=== PATIENT | female | born 1975 ===

== ENCOUNTER 2016-12-24 14:38 | Emergency (ER) | payer MEDICAID ==
[2016-12-24 14:48] VITALS: BP 116/79; PULSE 72; RESP 18; TEMP 97.5; O2SAT 99
--- NOTE | 2016-12-24 15:22 | C.PDOC ---
History Of Present Illness 41 yr old female presents to the ER requesting Xanax refill. Patient state she was on Xanax 2mg but now had a new PMD in [place] who is giving her Xanax 1mg but has ran out of her Rx. Patient reports the PMD tried to refill them but "can't refill because the computer won't let her". Patient reports she ran out 3 days ago. Patient currently denies suicidal or homicidal ideation, chest pain , SOB, weakness or numbness. REQUESTING XANAX REFILL. PS WAS ON XANAX 2 MG, HAS NEW PMD IN [place] WHO WAS GIVING XANAX 1 MG BUT PS FINISHED RX. STATES PMD "CAN'T REFILL IT BC COMPUTER WON'T LET HER". RAN OUT 3 DAYS AGO. DENIES SI/SA. PS TRIED CALLING OUTPT PSYCH BUT NO RESPONSE EXAM NAD PSYCH CALM COOPERATIVE MILD ANXIETY NO ACUTE PSYCHOSIS, SI/SA MDM PT ADVISED NEED FOR CARE HOME FU AND MGMT OF ANXIETY. D/W CRISIS FOR OUTPT Time Seen by Provider: 12/24/16 14:58 Chief Complaint (Nursing): Med Refill History Per: Patient History/Exam Limitations: no limitations Onset/Duration Of Symptoms: Days (ran out 3 days ago) Past Medical History Reviewed: Historical Data, Nursing Documentation, Vital Signs Vital Signs: Last Vital Signs Temp 97.5 F L 12/24/16 14:45 Pulse 72 12/24/16 14:45 Resp 18 12/24/16 15:33 BP 116/79 12/24/16 14:45 Pulse Ox 99 12/24/16 15:25 - Medical History PMH: Depression - [facility] Procedures TETANUS TOXOID ADMINIST (08/15/14) Family History: States: No Known Family Hx - Social History Hx Alcohol Use: No Hx Substance Use: No - Immunization History Hx Tetanus Toxoid Vaccination: (not up to date) Review Of Systems Except As Marked, All Systems Reviewed And Found Negative. Cardiovascular: Negative for: Chest Pain Respiratory: Negative for: Shortness of Breath Neurological: Negative for: Weakness, Numbness Psych: Negative for: Suicidal ideation Physical Exam - Physical Exam Appears: Non-toxic, No Acute Distress, Other (Mild anxiety. Cooperative. No acute psychosis. 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 Case was discussed with crisis worked for outpatient. Disposition Counseled Patient/Family Regarding: Diagnosis, Need For Followup, Rx Given - Disposition Referrals: [facility] [Provider Group] [facility] [Outside] [facility] [Outside] Disposition: HOME/ ROUTINE Disposition Time: 15:24 Condition: GOOD Prescriptions: Alprazolam [Xanax] 2 mg PO PRN PRN #4 tab PRN Reason: Anxiety Instructions: Anxiety (ED) - Clinical Impression Clinical Impression: Anxiety, Medication refill - Scribe Statement The provider has reviewed the documentation as recorded by the Jakeibneto Burkett Provider Attestation: All medical record entries made by the Jakeibneto were at my direction and personally dictated by me. I have reviewed the chart and agree that the record accurately reflects my personal performance of the history, physical exam, medical decision making, and the department course for this patient. I have also personally directed, reviewed, and agree with the discharge instructions and disposition.
== END 2016-12-24 15:33 | disposition home or self-care (01) ==
LOC: C.ER 14:38
DX: F41.9 Anxiety disorder, unspecified (principal); Z76.0 Encounter for issue of repeat prescription

== ENCOUNTER 2017-12-10 15:46 | Emergency (ER) | payer MEDICAID ==
[2017-12-10 16:02] VITALS: TEMP 98.2
[2017-12-10] MEDS ORDERED: Piperacillin/Tazobact 3.375 GM in Sodium Chloride 100 ML IVPB STA (16:11)
[2017-12-10] MEDS ORDERED: Vancomycin 1 gm/NS 200 ml 1 GM/200 ML BAG IVPB STA ×2 (16:23→17:02)
[2017-12-10 16:39] LABS: BASO % 0.5 % (0.0-2.0); EOS # 0.1 K/uL (0.0-0.7); EOS % 1.8 % (0.0-4.0); HEMOGLOBIN 13.9 g/dL (11.0-16.0); LYMPH % 25.9 % (20.0-40.0); MEAN CELL VOLUME 91.2 fL (81.0-99.0); MEAN CORPUSCULAR HEMOGLOBIN 31.9 pg (27.0-31.0); MEAN CORPUSCULAR HGB CONC 34.9 g/dL (33.0-37.0); MEAN PLATELET VOLUME 8.1 fL (7.2-11.7); MONO # 0.4 K/uL (0.0-0.8); MONO % 5.4 % (0.0-10.0); NEUT # 5.3 K/uL (1.8-7.0); NEUT % 66.4 % (50.0-75.0); NRBC % 0.1 % (0.0-2.0); RBC 4.35 Mil/uL (3.80-5.20); RED CELL DISTRIBUTION WIDTH 12.8 % (11.5-14.5); WHITE BLOOD COUNT 7.9 K/uL (4.8-10.8)
[2017-12-10 16:45] LABS: CALCIUM 9.8 mg/dl (8.6-10.4); GFR AFRICAN-AMERICAN > 60; GFR NON-AFRICAN AMERICAN > 60
[2017-12-10 16:47] LABS: ALB/GLOB RATIO 0.8 (1.0-2.1); ALBUMIN 4.7 g/dL (3.5-5.0); ALT/SGPT 26 U/L (9-52); AST/SGOT 43 U/L (14-36); BLOOD UREA NITROGEN 18 mg/dL (7-17)
--- NOTE | 2017-12-10 16:49 | RAD ---
PROCEDURE: Radiographs of the Left Forearm HISTORY: Arm puncture COMPARISON: None available. TECHNIQUE: Frontal and lateral views obtained. FINDINGS: BONES: Current study reveals no evidence of acute displaced fracture nor dislocation. Osseous structures appear intact. No evidence of cortical destruction. Mild infiltration changes seen within the medial and dorsal soft tissues of the left forearm which may represent cellulitis. Clinical correlation recommended. No evidence of radiopaque foreign body or obvious subcutaneous emphysema JOINT SPACES: Joint spaces preserved. OTHER FINDINGS: None. IMPRESSION: Suspect cellulitis within the medial and dorsal soft tissues left forearm. No acute fractures seen. No cortical destructive changes.
--- NOTE | 2017-12-10 17:33 | C.PDOC ---
History Of Present Illness 42 year old female presents to the emergency department with complaints of swelling and drainage in her left forearm. Patient reports that her forearm was punctured by a nail 3 days ago. She reports that she is right hand dominant and that her tetanus vaccination is up to date. Patient denies fever or chills. Time Seen by Provider: 12/10/17 16:06 Chief Complaint (Nursing): Abnormal Skin Integrity History Per: Patient History/Exam Limitations: no limitations Onset/Duration Of Symptoms: Days (x3) Current Symptoms Are (Timing): Still Present Location Of Injury: Left: Forearm (puncture by nail) Quality Of Symptoms: Swollen, Draining Past Medical History Vital Signs: Last Vital Signs Temp 98.2 F 12/10/17 16:02 Pulse 98 H 12/10/17 16:02 Resp 18 12/10/17 16:02 BP 100/70 12/10/17 16:02 Pulse Ox 97 12/10/17 18:16 - Medical History PMH: Depression Surgical History: No Surg Hx - [facility] Procedures TETANUS TOXOID ADMINIST (08/15/14) Family History: States: No Known Family Hx - Social History Hx Alcohol Use: No Hx Substance Use: No - Immunization History Hx Tetanus Toxoid Vaccination: (not up to date) Review Of Systems Except As Marked, All Systems Reviewed And Found Negative. Constitutional: Negative for: Fever, Chills Musculoskeletal: Positive for: Other (wound) Physical Exam - Physical Exam Appears: Non-toxic, No Acute Distress Skin: Normal Color, Warm, Dry Head: Atraumatic, Normacephalic Eye(s): bilateral: Normal Inspection Nose: Normal Oral Mucosa: Moist Neck: Normal, Supple Chest: Symmetrical Cardiovascular: Rhythm Regular Respiratory: Normal Breath Sounds Gastrointestinal/Abdominal: Normal Exam Extremity: Other (Puncture wound to the left volar aspect of the proximal forearm near the ulnar region, positive scant pustular discharge and surrounding erythema, no sloughing of skin. Neurovascularly intact.) Neurological/Psych: Oriented x3, Normal Speech, Normal Motor, Normal Sensation ED Course And Treatment - Laboratory Results Result Diagrams: 12/10/17 16:29 12/10/17 16:29 O2 Sat by Pulse Oximetry: 97 (RA) Pulse Ox Interpretation: Normal - Other Rad x-ray left forearm X-Ray: Interpreted by Me, Viewed By Me, Read By Radiologist Interpretation: BONES: Current study reveals no evidence of acute displaced fracture nor dislocation. Osseous structures appear intact. No evidence of cortical destruction. Mild infiltration changes seen within the medial and dorsal soft tissues of the left forearm which may represent cellulitis. Clinical correlation recommended. No evidence of radiopaque foreign body or obvious subcutaneous emphysema. JOINT SPACES: Joint spaces preserved. OTHER FINDINGS: None. IMPRESSION: Suspect cellulitis within the medial and dorsal soft tissues left forearm. No acute fractures seen. No cortical destructive changes. Medical Decision Making Medical Decision Making: Impression: cellulitis of the forearm. Plan: * CMP * CBC * Wound culture * x-ray X-ray shows no gas pattern. Patient given initial IV antibiotics, will attempt to treat as outpatient. Patient instructed to return within 24-48 hours for wound check. Disposition Counseled Patient/Family Regarding: Studies Performed, Diagnosis, Need For Followup, Rx Given - Disposition Referrals: [facility] [Outside] Disposition: HOME/ ROUTINE Disposition Time: 17:31 Condition: STABLE Additional Instructions: follow up with your doctor in 2 days call to make an appointment take medications as prescribed return to ER if symptoms worsens or progress wound check in 24-48 hours Prescriptions: Amoxicillin/Clavulanate [Augmentin 875 MG-125 MG] 1 tab PO BID #20 tab Sulfamethoxazole/Trimethoprim [Bactrim DS 800 mg-160 mg] 1 tab PO BID #20 tab traMADol [Ultram] 50 mg PO TID PRN #8 tab PRN Reason: Pain, Moderate (4-7) Instructions: Cellulitis (Skin Infection), Adult (DC) Forms: [facility] (Telugu), General Discharge Instructions - POA Present On Arrival: None - Clinical Impression Clinical Impression: Cellulitis - Scribe Statement The provider has reviewed the documentation as recorded by the Jillian Owusu Clifford Provider Attestation: All medical record entries made by the Jillian were at my direction and personally dictated by me. I have reviewed the chart and agree that the record accurately reflects my personal performance of the history, physical exam, medical decision making, and the department course for this patient. I have also personally directed, reviewed, and agree with the discharge instructions and disposition.
[2017-12-10 19:23] VITALS: BP 124/70; PULSE 74; RESP 20
[2017-12-11 07:23] VITALS: O2SAT 97
== END 2017-12-10 19:21 | disposition home or self-care (01) ==
LOC: C.ER 15:46
DX: L03.114 Cellulitis of left upper limb (principal)
CPT/HCPCS: 73090; 80053; 85025; 87070; 87181; 96365; 96368; 96375; 99283; J1885; J2543; J3370; J7050

== ENCOUNTER 2017-12-23 16:37 | Emergency (ER) | payer MEDICAID ==
[2017-12-23 16:46] VITALS: BP 103/69; PULSE 84; RESP 20; TEMP 98.3; O2SAT 97
--- NOTE | 2017-12-23 17:16 | C.PDOC ---
History Of Present Illness 42 yo female come back for re-evaluation of Left forearm pain, swelling developed 3 weeks ago " after puncture my arm with nail". Pt admits, was seen here in ED on 12/10/17 when xray, blood work performed with normal results, and received antibiotic. Pt reports, now developed Right neck gland swelling and pain associated with mild discomfort on swallow. Otherwise, pt denies fever, chills, drooling, trismus, recent dental work, headache, dizziness, earache, cough, abd. pain, N/V, denies new trauma or injury to left forearm, weakness, sensory or vascular deficits to left arm. Ambulate to Ed for evaluation, not in any apparent distress. Time Seen by Provider: 12/23/17 16:54 Chief Complaint (Nursing): ENT Problem History Per: Patient Past Medical History Reviewed: Historical Data, Nursing Documentation, Vital Signs Vital Signs: Last Vital Signs Temp 98.3 F 12/23/17 16:45 Pulse 84 12/23/17 16:45 Resp 20 12/23/17 16:45 BP 103/69 12/23/17 16:45 Pulse Ox 97 12/23/17 17:29 - Medical History PMH: Depression - [facility] Procedures TETANUS TOXOID ADMINIST (08/15/14) Family History: States: Unknown Family Hx - Social History Hx Alcohol Use: No Hx Substance Use: Yes - Immunization History Hx Tetanus Toxoid Vaccination: No (not up to date) Hx Influenza Vaccination: No Hx Pneumococcal Vaccination: No Review Of Systems Except As Marked, All Systems Reviewed And Found Negative. Constitutional: Negative for: Fever, Chills Eyes: Negative for: Vision Change ENT: Positive for: Throat Pain. Negative for: Ear Pain, Ear Discharge, Nose Pain, Nose Discharge, Nose Congestion, Mouth Swelling, Throat Swelling Cardiovascular: Negative for: Chest Pain, Palpitations Respiratory: Negative for: Cough Gastrointestinal: Negative for: Nausea, Vomiting, Abdominal Pain, Diarrhea Genitourinary: Negative for: Dysuria, Frequency, Incontinence Musculoskeletal: Positive for: Hand Pain Skin: Positive for: Lesions. Negative for: Rash Neurological: Negative for: Weakness, Numbness, Headache, Dizziness Physical Exam - Physical Exam Appears: Well, No Acute Distress Skin: Normal Color, Warm, No Rash Head: Normacephalic Eye(s): bilateral: PERRL Ear(s): Bilateral: Normal Nose: No Flaring, No Discharge Oral Mucosa: Moist, No Drooling, No Trismus Tongue: Normal Appearing Lips: Normal Appearing Teeth: Normal Dentition Gingiva: Normal Appearing Throat: No Erythema, No Drooling, Other (Uvul amidline, no edema.) Neck: Trachea Midline, Supple Lymphatic: Adenopathy (Right anterior cervical, local, tender, mobile, no edema or erythema.) Cardiovascular: Rhythm Regular, No Murmur, No JVD Respiratory: No Decreased Breath Sounds, No Accessory Muscle Use, No Stridor, No Wheezing Gastrointestinal/Abdominal: Soft, No Tenderness Extremity: Normal ROM (B/L UEs), No Pedal Edema, Capillary Refill (less than 2sec to Left hand), No Deformity, No Swelling, Other (Left volar/medial forearm single tender mass 1cm diameter. No edema, no erythema, no flactulance.) Neurological/Psych: Oriented x3, Normal Speech, Normal Motor, Normal Sensation, Normal Reflexes ED Course And Treatment O2 Sat by Pulse Oximetry: 97 - Other Rad Left forearm X-Ray: Read By Radiologist Interpretation: 12/10/17. 12/10/2017 16:48:15. My Comment : . PROCEDURE: Radiographs of the Left Forearm. HISTORY: Arm puncture. COMPARISON: None available. TECHNIQUE: Frontal and lateral views obtained. FINDINGS: BONES: Current study reveals no evidence of acute displaced fracture nor dislocation. Osseous structures appear intact. No evidence of cortical destruction. Mild infiltration changes seen within the medial and dorsal soft tissues of the left forearm which may represent cellulitis. Clinical correlation recommended. No evidence of radiopaque foreign body or obvious subcutaneous emphysema. JOINT SPACES: Joint spaces preserved. OTHER FINDINGS: None. IMPRESSION: Suspect cellulitis within the medial and dorsal soft tissues left forearm. No acute fractures seen. No cortical destructive changes. Progress Note: Records from 12/10/17 review, blood work- normal. XRay results review , c/w ?cellulitis. On re-evaluation, pt appears awake, playful, comfortable, not in any apparent distress. Afebrile, hemodynamicaly stable. Pt eat crackers in ED, tolerate Po well. PulsEOx 95% RA. Neck: Supple, (-) meningeal sign. ENT: no acute findings. uvula midline, no edema. Lungs: CTA B/ L, BS equal B/L. Abd: benign, (-) guarding, (-) rebound. Neurologicaly intact. Pt has clinical findings c/w vomiting, diarrhea r/o viral illness. Parent advised diet restriction for 1-2 days. Advised on course of ds. ref. to F/u with Ped in 2-3 days for re-evaluation. Return to ED if any worsening or new changes. Disposition Counseled Patient/Family Regarding: Diagnosis, Need For Followup, Rx Given - Disposition Referrals: Jonathan Saldana MD [Staff Provider] - Roman Craig MD [Medical Doctor] - [facility] [Outside] Disposition: HOME/ ROUTINE Disposition Time: 17:24 Condition: STABLE Additional Instructions: Take medication as prescribed Warm compresses to area Follow up with ENT, PMD, Surgery in 2-3 days for re-evaluation. return to ED if any worsening or new changes. Prescriptions: Clindamycin [Cleocin] 300 mg PO Q6 #28 cap Instructions: Swollen Neck Nodes in Children, Cellulitis (Skin Infection), Adult (DC) Forms: [employer] [facility] (Turkmen) - Clinical Impression Clinical Impression: Cellulitis of hand, Lymphadenopathy
== END 2017-12-23 17:46 | disposition home or self-care (01) ==
LOC: C.ER 16:37
DX: L03.114 Cellulitis of left upper limb (principal); R59.1 Generalized enlarged lymph nodes

== ENCOUNTER 2019-03-13 07:28 | Day surgery (SDC) | payer MEDICAID ==
[2019-03-13 07:58] VITALS: BMI 28.7
[2019-03-13] MEDS ORDERED: Lactated Ringer's 500 ML IV ONE ×2 (09:54)
[2019-03-13] MEDS ORDERED: Propofol 10 mg/ml Inj (20 ML) ONE (09:55)
[2019-03-13 11:28] VITALS: TEMP 98; O2SAT 100
[2019-03-13 11:30] VITALS: PULSE 55; RESP 15
[2019-03-13] MEDS ORDERED: ePHEDrine 50 mg/ml Inj ONE (11:37)
[2019-03-13 11:40] VITALS: BP 150/88
== END 2019-03-13 11:30 | disposition home or self-care (01) ==
LOC: C.ENDO 07:28
PROVIDERS: ATTEND Internal Medicine Gastroenterology
DX: K59.00 Constipation, unspecified (principal); Z53.09 Procedure and treatment not carried out because of other contraindication
CPT/HCPCS: 36415; 45378; 84702; J2704; J7120